=== PATIENT | female | born 1960 | race Caucasian/White ===

== ENCOUNTER 2020-12-18 09:52 | Observation (INO) | payer SELFPAY ==
[~2020-12-18] VITALS: Ht 162.6 cm; Wt 60.0 kg
[~2020-12-18 09:52] MED LIST: NO HOME MEDS; ULTRAM50 MG OR
--- NOTE | 2020-12-18 09:55 | NUR ---
PATEINT TO ROOM VIA WHEELCHAIR AND PHYSICIAN NOTIFID OF PATIENT STATUS
--- NOTE | 2020-12-18 10:25 | NUR ---
PATIENT REPORTED PAIN TO "RIBS" BELOW LEFT BREAST. PT REPORTS FALL FOUR DAYS AGO WHILE GETTING OUT OF [facility] HOME. PAIN INCREASES WITH DEEP BREATHING AND TENDER ON PALPATION. PAIN 4/10 ON ARRIVAL TO 1/10 WITH REST.
[2020-12-18] MEDS ORDERED: BL IBUPROFEN200 MG PO (10:43)
[2020-12-18 10:51] LABS: HEMATOCRIT 41.7 % (37.0-47.0); HEMOGLOBIN 13.8 g/dl (12.0-16.0); IMMATURE GRANULOCYTES 0.2 % (0.0-5.0); MEAN CELL VOLUME 89.9 fL CALC (80.0-100.0); MEAN CORPUSCULAR HGB 29.7 pG CALC (26.0-32.0); MEAN CORPUSCULAR HGB CONC 33.1 g/dL CAL (32.0-36.0); NEUT# 5.78 thou/uL (2.00-7.15); RED BLOOD COUNT 4.64 mill/uL (4.20-5.60)
[2020-12-18 11:13] LABS: D-DIMER 0.35 mg/L (0.19-0.60)
[2020-12-18 11:19] LABS: ACT PARTIAL THROMBO TIME 26.5 SECONDS (20.0-32.5); ALBUMIN 4.4 g/dL (3.2-5.0); ALKALINE PHOSPHATASE 94 u/l (38-126); AMYLASE 57 u/l (30-110); ANION GAP 13 (6-22 (CALC)); BILIRUBIN, TOTAL 0.5 mg/dL (0.0-1.4); BUN 12 mg/dL (7-17); BUN/CREATININE RATIO 16 (12-20 (CALC)); CARBON DIOXIDE 26 mmol/l (22-30); CHLORIDE 102 mmol/l (95-108); CREATININE 0.7 mg/dL (0.5-1.0); GFR > 60 ML/MIN (>=60 (CALC)); GFR FOR AFR.AMER. > 60 ML/MIN (>=60 (CALC)); LIPASE 98 u/l (23-300); MAGNESIUM 1.8 mg/dL (1.6-2.3); POTASSIUM 3.7 mmol/l (3.5-5.1); PROTHROMBIN TIME 10.4 SECONDS (9.0-12.5); SGOT/AST 24 u/l (14-36); SODIUM 137 mmol/l (137-146); TOTAL PROTEIN 7.7 g/dL (6.3-8.2)
[2020-12-18 11:55] LABS: URINE BILIRUBIN - DIPSTICK NEGATIVE (NEGATIVE); URINE BLOOD DIPSTICK NEGATIVE (NEGATIVE); URINE COLOR YELLOW; URINE GLUCOSE - DIPSTICK NEGATIVE (NEGATIVE); URINE KETONE NEGATIVE (NEGATIVE); URINE LEUK ESTERASE NEGATIVE (NEGATIVE); URINE PROTEIN - DIPSTICK NEGATIVE (NEG-TRACE); URINE UROBILINOGEN - DIPSTICK 0.2 E.U./dL (0.2)
[2020-12-18 11:56] LABS: URINE NITRITE - DIPSTICK NEGATIVE (Negative)
--- NOTE | 2020-12-18 12:36 | NUR ---
PATIENT AGREES WITH PLAN FOR ADMIT. NO DISTRESS. VSS
--- NOTE | 2020-12-18 13:42 | NUR ---
ATTEMPT TO CALL REPORT FOR ADMISSION. ARNOLD WILL CALL BACK FOR REPORT. CHARGE NURSE NOTIFIED.
--- NOTE | 2020-12-18 13:51 | NUR ---
REPORT PROVIDED TO ARNOLD FULLER.
--- NOTE | 2020-12-18 13:56 | NUR ---
PT TRANSPORTED TO [facility] SURG STABLE AND IN NO DISTRESS BY W/C CARE ASSUMED TO ARNOLD
[2020-12-18 14:25] VITALS: BP 106/70
--- NOTE | 2020-12-18 14:47 | NUR ---
PT ARRIVES TO [facility] 263 FROM ER VIA WHEELCHAIR, ALERT AND ORIENTED X 3. LUNGS CLEAR, RA. ABDOMEN BENIGN. NO CHEST PAIN OR SHORTNESS OF BREATH. ADMISSION ASSESSMENT COMPLETED WITHOUT ISSUE. PT EMOTIONAL, STATES THAT SHE IS UNDER A LOT OF STRESS AT HOME. PT CONSOLED.
--- NOTE | 2020-12-18 15:56 | NUR ---
PT IN SHOWER AT THIS TIME, STATES THAT SHE DOES NOT HAVE HOT WATER WHERE SHE LIVES. PT REMAINS FREE OF CHEST PAIN OR SHORTNESS OF BREATH.
[2020-12-18 19:50] VITALS: BP 99/65
--- NOTE | 2020-12-18 22:44 | NUR ---
PATIENT IS ALERT AND ORIENTED X4. ABLE TO MAKE NEEDS KNOWN. RESPIRATIONS EASY ON ROOM AIR. C/O PAIN 11/11. ON TELEMETRY RUNNING SR. NO EVENING MEDS TO BE GIVEN. CURRENTLY RESTING IN BED WITH EYES CLOSED. BED IN LOW POSITION. CALL LIGHT WITHIN REACH.
[2020-12-19] VITALS: BP 127/76
[2020-12-19 04:00] VITALS: BP 117/73
[2020-12-19 06:14] LABS: HEMATOCRIT 39.4 % (37.0-47.0); HEMOGLOBIN 12.9 g/dl (12.0-16.0); MEAN CELL VOLUME 91.2 fL CALC (80.0-100.0); MEAN CORPUSCULAR HGB 29.9 pG CALC (26.0-32.0); MEAN CORPUSCULAR HGB CONC 32.7 g/dL CAL (32.0-36.0); RED BLOOD COUNT 4.32 mill/uL (4.20-5.60); RED CELL DISTRI WIDTH 11.9 % (11.5-15.5)
[2020-12-19 06:27] LABS: ANION GAP 11 (6-22 (CALC)); BUN 15 mg/dL (7-17); BUN/CREATININE RATIO 28 (12-20 (CALC)); CALCULATED LDLCHOLESTEROL 135 mg/dL (62-129 (CALC)); CARBON DIOXIDE 22 mmol/l (22-30); CHLORIDE 107 mmol/l (95-108); CHOLESTEROL HDL RATIO 4.7 (<4.4 (CALC)); CREATININE 0.5 mg/dL (0.5-1.0); GFR > 60 ML/MIN (>=60 (CALC)); GFR FOR AFR.AMER. > 60 ML/MIN (>=60 (CALC)); HDL CHOLESTEROL 43 mg/dL (>=40); MAGNESIUM 1.7 mg/dL (1.6-2.3); POTASSIUM 4.3 mmol/l (3.5-5.1); SODIUM 135 mmol/l (137-146); TOTAL CHOLESTEROL 203 mg/dl (0-199); TOTAL TRIGLYCERIDES 124 mg/dl (30-149); VLDL CHOLESTROL 25 mg/dl (2-49 (CALC))
--- NOTE | 2020-12-19 07:00 | NUR ---
PT REPORT RECEIVED FROM NIGHT NURSEMAHOGANY.
[2020-12-19 08:00] VITALS: BP 114/74
--- NOTE | 2020-12-19 08:00 | NUR ---
PT WAS FOUND RESTING IN BED EATING BREAKFAST;PT IS A&O X3;PT HAS NO REPORTS OF PAIN AT THIS TIME;VS AND ASSESSMENT WERE COMPLETED;HEART SOUNDS ARE REGULAR IN RATE AND RHYTHM;LUNG SOUNDS ARE CLEAR;RESPIRATIONS ARE EVEN AND UNLABORED ON RA;TELE IS IN PLACE;#20G IV IN RAC IS SL, PATENT AND FREE OF COMPLICATIONS;SAFETY PRECAUTIONS IN PLACE;CALL LIGHT WITHIN REACH;BED IN LOWEST POSITION;WILL CONTINUE TO MONITOR.
[2020-12-19 10:48] VITALS: BP 114/72
[2020-12-19] MEDS ORDERED: ZOLOFT25 MG PO (11:23)
--- NOTE | 2020-12-19 12:00 | NUR ---
PT WAS FOUND RESTING IN BED;TELE IS IN PLACE;PT IS AWARE OF UPCOMING DC, REQUESTED TO EAT LUNCH BEFORE SHE GOES HOME;SAFETY PRECAUTIONS IN PLACE;CALL LIGHT WITHIN REACH;WILL CONTINUE TO MONITOR.
--- NOTE | 2020-12-19 12:43 | NUR ---
Discharge instructions given. Patient verbalizes understanding of same. Discharged in stable condition via Wheelchair to Home with family. All belongings sent with pt. PT WAS GIVEN DISCHARGE PACKET AND PRESCRIPTION;DISCHARGE INSTRUCTIONS AND PRESCRIPTION WERE EXPLAINED AND PT HAD NO FURTHER QUESTIONS;SIGNATURE WAS OBTAINED;IV WAS REMOVED WITH NO COMPLICATIONS AND CATHETER WAS INTACT;TELE WAS REMOVED;PT WAS TRANPORTED VIA WC TO LOBBY IN STABLE CONDITION ACCOMPANIED BY STAFF;ALL PT BELONGINGS WERE SENT WITH PT;PT STATED SHE WILL DRIVE HERSELF HOME SHE DROVE HERSELF TO THE ED.
== END 2020-12-19 12:43 | disposition home or self-care (01) | DRG 605 ==
LOC: ED 09:52 → ED-I 12:12 → ED 12:32 → MS2 12:33
PROVIDERS: Nurse Practitioner; ADMIT Internal Medicine; ATTEND Internal Medicine
DX: S20.212A Contusion of left front wall of thorax, initial encounter (principal); F32.9 Major depressive disorder, single episode, unspecified; F17.200 Nicotine dependence, unspecified, uncomplicated; W10.8XXA Fall (on) (from) other stairs and steps, initial encounter; Y92.028 Other place in mobile home as the place of occurrence of the external cause; Z82.49 Family history of ischemic heart disease and other diseases of the circulatory system; Z63.8 Other specified problems related to primary support group; Z20.822 Contact with and (suspected) exposure to COVID-19
CPT/HCPCS: G0378

== ENCOUNTER 2021-01-30 13:57 | Emergency (ER) | payer SELFPAY ==
[~2021-01-30] VITALS: Ht 162.6 cm; Wt 68.0 kg
[~2021-01-30 13:57] MED LIST changes: +BL IBUPROFEN200 MG PO; +ZOLOFT25 MG PO
[2021-01-30] MEDS ORDERED: ERYTHROMYCIN O3.5 GM OS (14:58)
[2021-01-30 15:12] VITALS: BP 110/70
== END 2021-01-30 15:13 | disposition home or self-care (01) | DRG 125 ==
LOC: ED 13:57
DX: H18.822 Corneal disorder due to contact lens, left eye (principal); F17.210 Nicotine dependence, cigarettes, uncomplicated

== ENCOUNTER 2022-10-08 10:41 | Emergency (ER) | payer BC ==
[2022-10-08] VITALS (11 sets, daily range): BP systolic 106–144; BP diastolic 60–81
[~2022-10-08] VITALS: Ht 162.6 cm; Wt 75.0 kg
[~2022-10-08 10:41] MED LIST changes: +ERYTHROMYCIN O3.5 GM OS
[2022-10-08 11:12] LABS: BASO% 0.6 % (0-3); EOS% 17.8 % (0-8); HEMATOCRIT 39.3 % (37.0-47.0); HEMOGLOBIN 13.2 g/dl (12.0-16.0); IMMATURE GRANULOCYTES 0.2 % (0.0-5.0); LYMPH% 27.4 % (15-41); MEAN CELL VOLUME 90.3 fL CALC (80.0-100.0); MEAN CORPUSCULAR HGB 30.3 pG CALC (26.0-32.0); MEAN CORPUSCULAR HGB CONC 33.6 g/dL CAL (32.0-36.0); MONO% 8.3 % (2-13); NEUT# 3.7 thou/uL (2.00-7.15); NEUT% 45.7 % (42-76); RED BLOOD COUNT 4.35 mill/uL (4.20-5.60); RED CELL DISTRI WIDTH 12.4 % (11.5-15.5)
[2022-10-08 11:23] LABS: ALKALINE PHOSPHATASE 76 u/l (38-126); ANION GAP 9 (6-22 (CALC)); BUN 8 mg/dL (7-17); BUN/CREATININE RATIO 13 (12-20 (CALC)); CARBON DIOXIDE 22 mmol/l (22-30); CHLORIDE 111 mmol/l (95-108); CREATININE 0.6 mg/dL (0.5-1.0); GFR FOR AFR.AMER. > 60 ML/MIN (>=60 (CALC)); GFR OTHER RACES > 60 ML/MIN (>=60 (CALC)); POTASSIUM 3.7 mmol/l (3.5-5.1); SGOT/AST 28 u/l (14-36); SODIUM 139 mmol/l (137-146)
[2022-10-08 11:35] LABS: ALBUMIN 3.2 g/dL (3.2-5.0); BILIRUBIN, TOTAL 0.1 mg/dL (0.02-1.3); TOTAL PROTEIN 5.8 g/dL (6.3-8.2)
[2022-10-08] MEDS ORDERED: PREDNISONE50 MG PO (14:48)
[2022-10-08] MEDS ORDERED: PROAIR HFA IN (14:48)
[2022-10-08] MEDS ORDERED: ZPAK PO (14:48)
== END 2022-10-08 15:00 | disposition home or self-care (01) | DRG 313 ==
LOC: ED 10:41
PROVIDERS: Family Medicine
DX: R07.9 Chest pain, unspecified (principal); F17.210 Nicotine dependence, cigarettes, uncomplicated; R05.9 Cough, unspecified

== ENCOUNTER 2024-09-21 21:34 | Emergency (ER) | payer OTHER ==
[~2024-09-21] VITALS: Ht 162.6 cm; Wt 72.0 kg
[~2024-09-21 21:34] MED LIST changes: +PREDNISONE50 MG PO; +PROAIR HFA IN; +ZPAK PO
[2024-09-21] MEDS ORDERED: ASPIRIN 81 MG/TAB PO ONE (21:40)
[2024-09-21 21:42] VITALS: BP 147/77
[2024-09-21] MEDS ORDERED: ALUM & MAG HYDROX-SIMETHICONE 30 ML PO ONE (21:45)
[2024-09-21] MEDS ORDERED: KETOROLAC TROMETHAMINE 30 MG/ML SDV IV ONE (21:45)
[2024-09-21] MEDS ORDERED: LIDOCAINE VISCOUS 2% 15 ML UDC PO ONE (21:45)
[2024-09-21 22:02] LABS: BASO% 0.7 % (0-3); EOS% 5.3 % (0-8); HEMATOCRIT 39.6 % (37.0-47.0); HEMOGLOBIN 13.5 g/dl (12.0-16.0); IMMATURE GRANULOCYTES 0.1 % (0.0-5.0); LYMPH% 41.5 % (15-41); MEAN CELL VOLUME 89.6 fL CALC (80.0-100.0); MEAN CORPUSCULAR HGB 30.5 pG CALC (26.0-32.0); MEAN CORPUSCULAR HGB CONC 34.1 g/dL CAL (32.0-36.0); MONO% 8.6 % (2-13); NEUT# 3.14 thou/uL (2.00-7.15); NEUT% 43.8 % (42-76); RED BLOOD COUNT 4.42 mill/uL (4.20-5.60); RED CELL DISTRI WIDTH 11.6 % (11.5-15.5)
[2024-09-21 22:09] LABS: CREATININE 0.7 mg/dL (0.5-1.0); POTASSIUM 4.2 mmol/l (3.5-5.1)
[2024-09-21 22:12] LABS: ALBUMIN 4.2 g/dL (3.2-5.0); BILIRUBIN, TOTAL 0.4 mg/dL (0.02-1.3); TOTAL PROTEIN 7.3 g/dL (6.3-8.2)
[2024-09-21 22:18] VITALS: BP 116/78
[2024-09-21 22:26] LABS: D-DIMER < 0.19 mg/L (0.19-0.60); PROTHROMBIN TIME 10.8 SECONDS (9.0-12.5)
[2024-09-21 22:30] VITALS: BP 126/76
[2024-09-21 22:37] LABS: URINE BILIRUBIN - DIPSTICK Negative (NEGATIVE); URINE BLOOD DIPSTICK Negative (NEGATIVE); URINE GLUCOSE - DIPSTICK Negative (NEGATIVE); URINE KETONE Negative (NEGATIVE); URINE NITRITE - DIPSTICK Negative (Negative); URINE PH 6.5 (4.5-8.0); URINE PROTEIN - DIPSTICK Negative (NEG-TRACE); URINE UROBILINOGEN - DIPSTICK 0.2 E.U./dL (0.2)
[2024-09-21 22:41] LABS: URINE COLOR Yellow; URINE LEUK ESTERASE Small (NEGATIVE)
[2024-09-21 22:45] LABS: URINE BACTERIA RARE hpf; URINE RBC 0-2 RBC/hpf (0-5); URINE SQUAMOUS EPITHELIAL CELL FEW EPI/hpf (0-FEW)
[2024-09-21 23:00] VITALS: BP 124/56
[2024-09-21] MEDS ORDERED: VOLTAREN - GENE75 MG PO (23:28)
[2024-09-21] MEDS ORDERED: PEPCID40 MG PO (23:28)
[2024-09-21 23:30] VITALS: BP 136/75
[2024-09-21 23:43] VITALS: BP 136/75
== END 2024-09-21 23:43 | DRG 313 ==
LOC: ED 21:34
PROVIDERS: Family Medicine
DX: R07.9 Chest pain, unspecified (principal); Z87.891 Personal history of nicotine dependence